=== PATIENT | male | born 1950 | race Caucasian/White ===

== ENCOUNTER 2025-07-14 15:55 | Outpatient (REF) | payer MEDICAID, SELFPAY ==
--- OUTSIDE RECORDS SUMMARY | 2025-07-02 16:00 | XMS_ITS | Encounter Summary ---
Author Organization [facility] Address [address] [place] [address] Care Team Providers Care Development Manager Name Role Phone Kvng [place] MD Primary Care Provider [phone] Reason for Referral * Other Medical (Routine) - Pending Review Specialty Diagnoses / Procedures Referred By Contmarin t Referred To Contact Diagnoses Seizures (HCC) Procedures EEG 2-12HRS,CONT Gary Lubin MD [address] [place] [address] Phone: tel: fax: Referral ID Status Reason Start Date Expiration Date V isits Requested Visits Authorized [id number] Pending Review 07/14/2025 01/10/2026 1 1 Reason for Visit * Reason Comments Seizures * Consultation (Routine) - Closed Specialty Diagnoses / Procedures Referred By Contmarin t Referred To Contact Neurology Diagnoses Seizures (HCC) Procedures 133 ([email or web address]) - Ambulatory referral to Neurology (Non-[facility]) Kvng [place] MD [address] [place] [address], [address] [place] [address] Phone: tel: fax: Gary Lubin MD [address] [place] [address] Phone: tel: fax: Referral ID Status Reason Start Date Expiration Date Visits Re quested Visits Authorized [id number] Closed 05/02/2025 05/02/2026 1 1 Encounter Details Date Type Department Care Team (Late st Contact Info) Description 07/02/2025 4:00 PM EDT Office Visit [facility] [address] [place] [address] Gary Lubin MD [address] [place] [address] Seizures (HCC) (Primary Dx) Social History Tobacco Use Types Packs/Day Years Used Date Smoking Tobacco: Never Smokeless Tobacco: Never Tobacco Cessation:Counseling Given: Not Answered Alcohol Use Standard Drinks/Week Comments Never 0 (1 standard drink = 0.6 oz pur e alcohol) Sex and Gender Information Value Date Recorded Sex Assigned at Not on file Legal Sex Male 12:56 PM EST Gender Identity Not on file Sexual Orientation Not on file documented as of this encounter Last Filed Vital Signs Vital Sign Reading Time Taken Comments Blood Pressure 160/98 07/02/2025 4:13 PM EDT Pulse - - Temperature - - Respiratory Rate - - Oxygen Saturation - - Inhaled Oxygen Concentration - - Weight 103 kg (227 lb) 07/02/2025 4:13 PM EDT Height - - Body Mass Index - - documented in this encounter Progress Notes * Gary Lubin MD - 07/02/2025 4:00 PM EDT Images from the original note were not included. CHIEF COMPLAINT REASON FOR VISIT : Patient is present for a new patient consultation for seizures. Subjective Madi Awad is a 75 y.o. male who presents for Seizures History of Present Illness The patient is a 75-year-old male who presents for questionable seizures. He has been under the care of a neurologist, Dr. Ramirez, for an extended period due to his seizure disorder. The seizures have significantly decreased in frequency, with the last episode occurring over 8 months ago. The onset of his seizures was approximately 4 years ago. Depakote has been effective in managing his condition, and he recently had blood work done to monitor his Depakote levels. He is also taking Artane twice daily and has been advised to avoid caffeine while on Depakote. He has not undergone an EEG recently. He exhibits repetitive mouth movements and hand movements, which are more pronounced now than in the past. He does not have a psychiatrist and has been diagnosed with schizophrenia. Since relocating from [facility] to the [facility] in 12/2024, he has been stable without any hallucinations or irritability. SOCIAL HISTORY: Education Level: Master's degree in music Hobbies: Playing the piano Coffee/Tea/Caffeine-containing Drinks: Avoids caffeine FAMILY HISTORY - Negative for family history of seizures. MEDICATIONS CURRENT MEDS: Depakote Artane Twice daily Geodon Review of Systems Const: Denies appetite change, fever, chills. Allergy: Denies medication reaction. Ocular: Denies visual acuity change. ENT: Denies hearing change. Endoc: Denies weight loss. Resp: Denies dyspnoea, wheezing. Cardiac: Denies angina, palpitations. GI: Denies nausea, vomiting. Haem: Denies bleeding. : Denies incontinence. MSK: Denies arthralgias, joint oedema. Derm: Denies rash, hair loss. Neuro: Denies ataxia, tremor. Also see HPI for elements of ROS documented therein and for details of positive findings, which shall supersede the foregoing. Objective Blood pressure (!) 160/98, weight 227 lb. Physical Exam Motor Examination Strength: Hand strength evaluated, normal. Involuntary Movements: Repetitive movements with mouth and hand noted. Results Labs - Liver function test: Normal - Kidney function test: Normal - Thyroid levels: Slightly elevated - Blood counts: Normal - Urinalysis: Normal Assessment & Plan 1. Seizure disorder. His seizures have been well-controlled with Depakote, with the last seizure occurring over 8 monthsago. A Depakote level test will be ordered to ensure the medication is at the optimal dose. An EEG will be scheduled to assess brain wave activity and stability. 2. Tardive dyskinesia. He exhibits repetitive mouth and hand movements, which may be due to prolonged use of Artane and Geodon. The Artane dosage will be reduced by eliminating the bedtime dose to see if this helps with the extra movements. If the reduction in Artane does not improve the symptoms, medications specifically for tardive dyskinesia will be considered. 3. VPA level. This clinical note was created utilizing [employer] documentation system. All information has beenthoroughly reviewed, corrected as necessary, and authenticated by the provider to ensure accuracy and completeness. On occasion, [employer] documentation system erroneously drops words or replaces aspoken word with a similar sounding word. Please notify with any questions or concerns regarding this clinical note. documented in this encounter Miscellaneous Notes * Addendum Note - Aparna Dotson - 07/02/2025 4:00 PM EDTAddended by: EH HOGUE on: 07/14/2025 09:26 AM Modules accepted: Orders documented in this encounter Plan of Treatment Upcoming Encounters Date Type Department Care Team (Late st Contact Info) Description 07/16/2025 11:00 AM EDT Ancillary Procedure [facility] [address] [place] [address] 08/27/2025 11:30 AM EST Office Visit [facility] [address] [place] [address] Laura Nichole, CHIEF RECORDIST-ORNAMENTAL IRON WORKER APPRENTICE [address] [facility] [place], [place] [id number] Scheduled Orders Name Type Priority Associated Diagnoses Orde r Schedule Valproic acid level, total Lab Routine Seizures (HCC) Expected: 07/02/2025 (Approximate), Expires: 07/02/2026 EEG 2-12HRS,CONT Neurology Routine Seizures (HCC) Expected: 07/14/2025 (Approximate), Expires: 07/14/2026 documented as of this encounter Visit Diagnoses Diagnosis Seizures (HCC)- Primary Other convulsions documented in this encounter Care Teams Development Manager Relationship Specialty Start Date End Date Kvng [place] MD PCP - General Family Medicine 10/02/24 documented as of this encounter
--- OUTSIDE RECORDS SUMMARY | 2025-07-14 16:05 | XMS_ITS | Clinical Summary ---
Author Organization [facility] Address [address] [place] [address] Care Team Providers Care Nurse Licensed Practical Name Role Phone Kvng [facility] MD Primary Care Provider [phone] Medications divalproex (Depakote) 500 MG EC tablet Take 500 mg by mouth in the morning and 500 mg in the evening. Active losartan (Cozaar) 50 MG tablet Take 50 mg by mouth in the morning. Active lovastatin (Mevacor) 10 MG tablet Take 10 mg by mouth at bedtime 5 Active ziprasidone (Geodon) 60 MG capsule Take 60 mg by mouth in the morning and 60 mg in the evening. Take with meals. 5 Active latanoprost (Xalatan) 0.005 % ophthalmic solution 5 Active LORazepam (Ativan) 0.5 MG tablet Take 0.5 mg by mouth at bedtime Active Multiple Vitamins-Minerals (Mens Multivitamin Gummies) chewable tablet Chew Active LUTEIN PO Take by mouth Active trihexyphenidyl (Artane) 2 MG tabletIndications :Paranoid schizophrenia (HCC) Take 1 tablet (2 mg) by mouth in the morning and 1 tablet (2 mg) in the evening. Take with meals. 60 tablet 11 5 08/06/20 25 Active trihexyphenidyl (Artane) 2 MG tablet Take 2 mg by mouth in the morning and 2 mg in the evening. Take with meals. 5 07/07/20 25 Discontinu ed(Reorder ) Active Problems Problem Noted Date Diagnosed Date Hyperlipidemia 07/02/2025 Hypertension 07/02/2025 Macular degeneration 07/02/2025 Schizophrenia 07/02/2025 Seizures 07/02/2025 Urinary incontinence 01/01/2025 Overview (07/02/2025): ==== 01/01/2025 ==== long-term once history some urinary incontinence postprocedure. Wears pads. PLAN: will perform a cysto [facility] just to get a better idea of his anatomy. History of prostate cancer 09/27/2024 Overview (07/02/2025): ==== 01/01/2025 ==== about 12 years ago had radical prostatectomy robotically through Dr. Agarwal. Per report they feel the PSA has been undetectable. He has been lost to follow up in that regard. Deny any radiation therapy postprocedure. Plan: PSA to establish PSA number Continuous leakage of urine 09/26/2024 Encounters Date Type Department Care Team Description 07/07/2025 Telephone [facility] [address] [facility] [address] [place] [phone] Gisela Estes MA 07/02/2025 4:00 PM EDT Office Visit [facility] [address] [facility] [address] [place] [address] Gary Lubin MD Seizures (HCC) (Primary Dx) 07/02/2025 Bamboo flowsheet [facility] [address] [place] [address] Gary Lubin MD 07/02/2025 Travel from Last 3 Months Social History Tobacco Use Types Packs/Day Years [...] on file Sexual Orientation Not on file Last Filed Vital Signs Vital Sign Reading Time Taken Comments Blood Pressure 160/98 07/02/2025 4:13 PM EDT Pulse - - Temperature - - Respiratory Rate - - Oxygen Saturation - - Inhaled Oxygen Concentration - - Weight 103 kg (227 lb) 07/02/2025 4:13 PM EDT Height - - Body Mass Index - - Plan of Treatment Upcoming Encounters Date Type Department Care Team (Late st Contact Info) Description 07/16/2025 11:00 AM EDT Ancillary Procedure [facility] [address] [place] [phone] 08/27/2025 11:30 AM EST Office Visit [facility] [address] [facility] [address] [place] [phone] Laura Nichole, GLUER MACHINE OPERATOR-EVALUATION MANAGER [address] [facility] [place], [place] [id number] Insurance [place]ICAID [place] Advance Directives Documents on File Type Date Recorded Patient Melt House Supervisor Expl anation Power of Haul Truck Driver 07/02/2025 3:00 PM maria Jones called and wanted to make sure her Botox is approved for tomorrow appt 03/01/78 jwuv of atty Care Teams Nurse Licensed Practical Relationship Specialty Start Date End Date Kvng [facility] MD PCP - General Family Medicine 10/02/24
--- OUTSIDE RECORDS SUMMARY | 2025-07-14 16:05 | XMS_ITS | Encounter Summary ---
Author Organization [facility] Address [address] [facility] [place] [address] Care Team Providers Care Spin Tank Tender Name Role Phone Kvng [facility] MD Primary Care Provider [phone] Encounter Details Date Type Department Care Team (Late st Contact Info) Description 07/07/2025 Telephone [facility] [address] [facility] [address] [place] [address] Gisela Estes MA Social History Tobacco Use Types Packs/Day Years Used Date Smoking Tobacco: Never Smokeless Tobacco: Never Alcohol Use Standard Drinks/Week Comments Never 0 (1 standard drink = 0.6 oz pur e alcohol) Sex and Gender Information Value Date Recorded Sex Assigned at Not on file Legal Sex Male 12:56 PM EST Gender Identity Not on file Sexual Orientation Not on file documented as of this encounter Miscellaneous Notes * Telephone Encounter - Kenna Oquendo MD - 07/07/2025 8:40 PM EDT Do we write for this ? * Addendum Note - Kenna Oquendo MD - 07/07/2025 8:40 PM EDTAddended by: KENNA OQUENDO on: 07/07/2025 08:40 PM Modules accepted: Orders * Telephone Encounter - Gisela Estes MA - 07/07/2025 11:57 AM EDT X2 voicemail left regarding this issue * Telephone Encounter - Gisela Estes MA - 07/07/2025 11:55 AM EDT Daxa from [facility] leaves message regarding patien't Artane. There was no quantity or refills documented in this encounter Plan of Treatment Upcoming Encounters Date Type Department Care Team (Late st Contact Info) Description 07/16/2025 11:00 AM EDT Ancillary Procedure [facility] [address] [facility] [address] [place] [phone] 08/27/2025 11:30 AM EST Office Visit [facility] [address] [place] [address] Laura Nichole, [facility] [address] [facility] [place] [address] documented as of this encounter Visit Diagnoses Diagnosis Paranoid schizophrenia (HCC)- Primary Paranoid schizophrenia, unspecified condition documented in this encounter Care Teams Spin Tank Tender Relationship Specialty Start Date End Date Kvng [facility] MD PCP - General Family Medicine 10/02/24 documented as of this encounter
--- OUTSIDE RECORDS SUMMARY | 2025-07-14 16:05 | XMS_ITS | Encounter Summary ---
Author Organization [facility] Address [address] [place] [address] Care Team Providers Care Work Counselor Name Role Phone Kvng [facility] MD Primary Care Provider [phone] Encounter Details Date Type Department Care Team (Latest Contact Info) Description 07/02/2025 Travel Social History Tobacco Use Types Packs/Day Years [...] on file documented as of this encounter Plan of Treatment Upcoming Encounters Date Type Department Care Team (Late st Contact Info) Description 07/16/2025 11:00 AM EDT Ancillary Procedure [facility] [address] [place] [phone] 08/27/2025 11:30 AM EST Office Visit [facility] [address] [phone] Laura Nichole, AUDIO VISUAL FACILITIES ENGINEER-SEWER AND CUTTER FINGER BUFF MATERIAL [address] [facility] [place] [address] documented as of this encounter Visit Diagnoses Not on filedocumented in this encounter Care Teams Work Counselor Relationship Specialty Start Date End Date Kvng [facility] MD PCP - General Family Medicine 10/02/24 documented as of this encounter
--- OUTSIDE RECORDS SUMMARY | 2025-07-14 16:05 | XMS_ITS | Encounter Summary ---
Author Organization [facility] Address [address] [facility] [place] [address] Care Team Providers Care Real Estate Job Titles Name Role Phone Kvng [facility] MD Primary Care Provider [phone] Encounter Details Date Type Department Care Team (Late Contact Info) Description 07/02/2025 Bamboo flowsheet [facility] [address] [place] [address] Gary Lubin MD [address] [id number] Social History Tobacco Use Types Packs/Day Years [...] Encounters Date Type Department Care Team (Late Contact Info) Description 07/16/2025 11:00 AM EDT Ancillary Procedure [facility] [address] [facility] [address] [place] [address] 08/27/2025 11:30 AM EST Office Visit [facility] [address] [facility] [address] [place] [address] Laura Nichole APRN-RESEARCH QUALITY ASSURANCE SPECIALIST [address] [place] [address] documented as of this encounter Visit Diagnoses Not on filedocumented in this encounter Care Teams Real Estate Job Titles Relationship Specialty Start Date End Date Kvng [facility] MD PCP - General Family Medicine 10/02/24 documented as of this encounter
== END 2025-07-14 15:56 | disposition home or self-care (01) ==
LOC: LAB 15:55
PROVIDERS: PCP Nurse Practitioner Family; Visit Provider Nurse Practitioner Family
DX: R56.9 Unspecified convulsions (principal)
CPT/HCPCS: 36415; 80164